=== PATIENT | female | born 2000 | race Caucasian/White ===

== ENCOUNTER 2024-08-08 14:10 | Emergency (ER) | payer OTHER ==
[~2024-08-08] VITALS: Ht 167.6 cm; Wt 68.0 kg
[2024-08-08 14:16] VITALS: BP 133/84; PULSE 104; RESP 16; TEMP 36.8; O2SAT 99
[2024-08-08] MEDS: LORAZEPAM 1MG TABLET PO ONE (15:06)
[2024-08-08 15:11] LABS: BASOPHILS % 0.5 % (0.0-2.0); EOSINOPHILS % 0.5 % (0.0-5.0); HEMATOCRIT. 40.4 % (36.0-48.0); HEMOGLOBIN. 13.6 g/dL (12.0-16.0); LYMPHOCYTES % 28.6 % (20.0-50.0); MEAN CORPUSCULAR HEMOGLOBIN 27.2 pg (28.0-32.0); MEAN CORPUSCULAR HGB CONC 33.7 g/dL (31.0-37.0); MEAN CORPUSCULAR VOLUME 80.8 fL (81.0-99.0); MEAN PLATELET VOLUME 7.8 fl (7.4-10.4); MONOCYTES % 6.9 % (2.0-8.0); NEUTROPHILS % 63.5 % (40.0-76.0); PLATELET 281 x1000/uL (130-400); RED CELL DISTRIBUTION WIDTH 13.4 % (11.6-14.6); WHITE BLOOD COUNT 6.2 x1000/uL (4.5-11.0)
[2024-08-08 15:17] LABS: CHLORIDE 103 mEq/L (98-107); POTASSIUM 3.7 mEq/L (3.5-5.1); SODIUM 139 mEq/L (136-145)
[2024-08-08 15:18] LABS: CALCIUM 9.5 mg/dL (8.7-10.4); CARBON DIOXIDE 28 mEq/L (21-32)
[2024-08-08 15:23] LABS: CREATININE 0.7 mg/dL (0.6-1.0); GLUCOSE 115 mg/dL (70-105); UREA NITROGEN BLOOD 13 mg/dL (9-23)
[2024-08-08 15:24] LABS: HCG SCREEN NEGATIVE
[2024-08-08 15:26] LABS: TROPONIN I HIGH SENSITIVITY < 4 ng/L (3.0-34)
[2024-08-08 15:41] LABS: D-DIMER 0.72 mg/L FEU (<0.50); PROTHROMBIN TIME 10.9 sec (9.6-11.0)
[2024-08-08] MEDS ORDERED: IOHEXOL-350 100 ML BOTTLE ONE (18:50)
== END 2024-08-08 19:39 | disposition home or self-care (01) ==
LOC: ER 15:17
DX: F41.0 Panic disorder [episodic paroxysmal anxiety] (principal); R03.0 Elevated blood-pressure reading, without diagnosis of hypertension
CPT/HCPCS: 99285; 71275; 71045; 80048; 84703; 83880; 85025; 85379; 85610; 84484; 36415; 93005; Q9967